=== PATIENT | female | born 1930 | race Caucasian/White ===

== ENCOUNTER 2020-06-07 15:17 | Emergency (ER) | payer OTHER ==
--- OUTSIDE RECORDS SUMMARY | 2020-06-07 15:21 | XMS REPORT | Continuity of Care Document ---
:1930 Author Organization [facility] t Address [address] [place] [address] Care Team Providers Name Role Phone Unavailable Unavailable Unavailable Payers Payer Name Policy Type Policy Number Effective Date Expiration Date S ource Problems This patient has no known problems. Allergies, Adverse Reactions, Alerts Allergy Allergy Status Severity Reaction(s) Onset Inactive Treating Comm ents Source Name Type Date Date Clinician No Known DA Active U [facility] 05-21 [place] [facility] 00:[facility] Medications This patient has no known medications. Procedures This patient has no known procedures. Results Test Description Test Time Test Comments Results Result [facility] e Comments - XR FLUORO FOR 2020-05-22 Patient Name: SPINE INJ 11:12:00 CASSIDY MANCIA Unit No: [id number] EXAMS: CPT CODE: [id number] XR FLUORO FOR SPINE INJ 37863 LUMBAR TRANSFORAMINAL INJECTION REFERRING PHYSICIAN: PREOPERATIVE DIAGNOSIS: Degenerative Lumbar Disc Disease. POSTOPERATIVE DIAGNOSIS: Left lumbar radiculopathy PROCEDURES PERFORMED 1. Fluoroscopically guided needle localization of the left L4, left L5, left S1 spinal nerve/nerves with transforaminal epidural steroid injection/injections. 2. Transforaminal epidurogram/epidurogram s at left L4, left L5, left S1. FINDINGS: Poor filling all. Concordant provocation left L4 hip. Pain relief-100%. ANTIBIOTIC: Cefazolin ESTIMATED BLOOD LOSS: Minimal ANESTHESIA: (TIVA )Total intravenous anesthetic (patient intolerant to sedatives and hypnotics) COMPLICATIONS: None DETAILS OF PROCEDURE: After obtaining stable vital signs, informed consent and IV access, with no known contraindications to proceeding, the patient was taken to the fluoroscopy suite and placed in a prone position with all extremities padded and appropriate monitors placed. A sterile prep and drape was performed over the lumbosacral spine. Using fluoroscopic visualization at each level the insertion site was marked for a paravertebral approach to the foramen. Using standard technique, a 25 gauge needle was advanced to the base of the pedicle. In AP view, final positioning was obtained outside the 6 on the clock position on the pedicle. Then, 1 ml of Isovue-300 contrast was injected to produce the epidurograms. No paresthesias were elicited with needle insertion or injection and there were no signs of intravascular or intrathecal uptake. Then, with 1 ml of 4% lidocaine and 10 mg of triamcinolone was injected incrementally with frequent negative aspirations. There were no signs of intravascular or intrathecal uptake. Each subsequent level was done using the same technique and medications. The patient's vital signs remained stable. The patient was taken to the PACU in good condition. at 1112 Reported and signed by: Britton Lawrence M.D. [facility] NAME[facility] [address] [place] [address] PHYS: Britton Russell MD [place], [place] [address] : 1930 AGE: 89 SEX: F LOC: MarleeDANIEL PHONE #: [phone] EXAM DATE: 05/22/2020 STATUS: [facility] FAX #: [phone] RAD #: D/C DT PAGE 1 Signed Report (CONTINUED) Patient Name: CASSIDY MANCIA Unit No: [id number] EXAMS: CPT CODE: [id number] XR FLUORO FOR SPINE INJ 70766 <Continued> CC: Britton Lawrence MD Technologist: PASQUALE CAI RT(R) Transcribed D/ (1112) Arianna [facility] [place] NAME: CASSIDY MANCIA [address] [place] [address] PHYS: Britton Russell MD [place], [place] [address] : 1930 AGE: 89 SEX: F LOC: [place] PHONE #: [phone] EXAM DATE: 05/22/2020 STATUS: [facility] FAX #: [phone] RAD #: D/C DT PAGE 2 Signed Report Patient Name: CASSIDY MANCIA Unit No: [id number] EXAMS: CPT CODE: [id number] XR FLUORO FOR SPINE INJ [id number] <Continued> Orig Print D/T: S: 05/22/2020 (1116) [facility] [place] NAME: CASSIDY MANCIA [address] PHYS: DOCUD - Doctor,Britton Kirby MD [place], [place] [address] : 1930 AGE: 89 SEX: F LOC: [place] PHONE #: [phone] EXAM DATE: 05/22/2020 STATUS: [facility] FAX #: [phone] RAD #: D/C DT PAGE 3 Signed Report
--- NOTE | 2020-06-07 15:52 | EDPHYS ---
Physician Documentation [facility] Name: Anel Hopkins Age: 89 yrs Sex: Female : 1930 Arrival Date: 06/07/2020 Time: 15:20 Bed 6 Private MD: ED Physician Alpesh Duenas HPI: 06/07 15:46 This 89 yrs old Female presents to ER via Wheelchair with complaints of LLE rn blood clot. 15:46 The patient presents with pain. The complaints affect the left calf. Onset: The rn symptoms/episode began/occurred at an unknown time. Modifying factors: The symptoms are alleviated by elevating leg, the symptoms are aggravated by nothing. Severity of symptoms: At their worst the symptoms were mild, in the emergency department the symptoms have improved. The patient has experienced similar episodes in the past. Reports swelling and pain to left leg for months, had scheduled outpt u/s today, showed DVT, no other complaints, no sob, no chest pain. No hx of dvt/pe. . Historical: - Allergies: 15:25 No Known Allergies; rb1 - Home Meds: 15:25 meloxicam 15 mg oral tab 1 tab once daily [Active]; losartan 25 mg oral tab 1 tab once rb1 daily [Active]; metoprolol tartrate 25 mg Oral tab 1 tab once daily [Active]; atorvastatin oral oral once daily [Active]; pramipexole 0.25 mg oral tab 1 tab daily [Active]; lansoprazole 30 mg oral cpDR 1 cap once daily [Active]; aspirin 81 mg Oral chew 1 tab once daily [Active]; - PMHx: 15:25 high blood pressure; High Cholesterol; rb1 - PSHx: 15:33 Hysterectomy; Cholecystectomy; Appendectomy; iw - Immunization history:: Flu vaccine is not up to date. - Family history:: not pertinent. - Social history:: Smoking status: Patient/guardian denies using. - Hospitalizations: : No recent hospitalization is reported. ROS: 15:46 Constitutional: Negative for fever, chills, and weight loss, Eyes: Negative for injury, rn pain, redness, and discharge, Cardiovascular: Negative for chest pain, palpitations, and edema, Respiratory: Negative for shortness of breath, cough, wheezing, and pleuritic chest pain, Abdomen/GI: Negative for abdominal pain, nausea, vomiting, diarrhea, and constipation, MS/Extremity: + LLE pain and swelling Skin: Negative for injury, rash, and discoloration, Neuro: Negative for headache, weakness, numbness, tingling, and seizure. Exam: 15:46 Constitutional: This is a well developed, well nourished patient who is awake, alert, rn and in no acute distress. Cardiovascular: Regular rate and rhythm. No pulse deficits. Respiratory: No increased work of breathing, no retractions or nasal flaring. Skin: Warm, dry, cap refill 4 sec bilateral feet. MS/ Extremity: Pulses equal. Neurovascular intact. Full, normal range of motion. + mild left calf tenderness, no pitting edema. Vital Signs: 15:25 BP 133 / 90; Pulse 69; Resp 17; Temp 97.7(O); Pulse Ox 96% ; Weight 90.72 kg (R); rb1 Height 5 ft. 2 in. (157.48 cm) (R); Pain 1/10; 15:25 Body Mass Index 36.58 (90.72 kg, 157.48 cm) rb1 15:25 unless someone touches the leg, then the pain 5/10 rb1 MDM: 15:24 Patient medically screened. rn 15:46 Differential diagnosis: DVT. Data reviewed: vital signs, nurses notes, radiologic rn studies, doppler, and as a result, I will discharge patient. Counseling: I had a detailed discussion with the patient and/or guardian regarding: the historical points, exam findings, and any diagnostic results supporting the discharge/admit diagnosis, radiology results, the need for outpatient follow up, to return to the emergency department if symptoms worsen or persist or if there are any questions or concerns that arise at home. Special discussion: I discussed with the patient/guardian in detail that at this point there is no indication for admission to the hospital. It is understood, however, that if the symptoms persist or worsen the patient needs to return immediately for re-evaluation. Based on the history and exam findings, there is no indication for further emergent testing or inpatient evaluation. I discussed with the patient/guardian the need to see the primary care provider for further evaluation of the symptoms. ED course: Uncomplicated DVT LLE, unsure even when began, no signs or symptoms of PE. Will dc home with eliquis and pcp f/u. . Administered Medications: 16:20 Drug: Eliquis 10 mg Route: PO; rb1 16:21 Follow up: Response: Medication administered at discharge. rb1 Disposition: 06/07/20 15:51 Discharged to Home. Impression: Acute embolism and thrombosis of other specified deep vein of left lower extremity. - Condition is Stable. - Discharge Instructions: Deep Vein Thrombosis. - Prescriptions for Eliquis 5 mg Oral tablet - take 1 tablet by ORAL route 2 times per day; 60 tablet. Eliquis 5 mg Oral tablet - take 2 tablet by ORAL route 2 times per day for 7 days Take this prescription for first 7 days, then switch to 2nd prescription of eliquis.; 28 tablet. - Medication Reconciliation Form, Thank You Letter, Antibiotic Education, Prescription Opioid Use form. - Follow up: Private Physician; When: As needed; Reason: Recheck today's complaints, Re-evaluation by your physician. - Problem is new. - Symptoms are unchanged. Signatures: Tamra Massey RN RN iw Alpesh Duenas MD MD rn Barber, Rebecca, RN RN rb1 Corrections: (The following items were deleted from the chart) 16:22 15:51 06/07/2020 15:51 Discharged to Home. Impression: Acute embolism and thrombosis of rb1 other specified deep vein of left lower extremity. Condition is Stable. Forms are Medication Reconciliation Form, Thank You Letter, Antibiotic Education, Prescription Opioid Use. Follow up: Private Physician; When: As needed; Reason: Recheck today's complaints, Re-evaluation by your physician. Problem is new. Symptoms are unchanged. rn
--- NOTE | 2020-06-07 15:52 | ER ---
Nurse's Notes [facility] Name: Anel Hopkins Age: 89 yrs Sex: Female : 1930 Arrival Date: 06/07/2020 Time: 15:20 Bed 6 Private MD: Diagnosis: Acute embolism and thrombosis of other specified deep vein of left lower extremity Presentation: 06/07 15:32 Chief complaint: Patient states: has had left leg swelling for months, had an US of leg iw today, showed a blood clot. Coronavirus screen: At this time, the client does not indicate any symptoms associated with coronavirus-19. Ebola Screen: Patient negative for fever greater than or equal to 101.5 degrees Fahrenheit, and additional compatible Ebola Virus Disease symptoms Patient denies exposure to infectious person. Patient denies travel to an Ebola-affected area in the 21 days before illness onset. No symptoms or risks identified at this time. Initial Sepsis Screen: Does the patient meet any 2 criteria? No. Patient's initial sepsis screen is negative. Does the patient have a suspected source of infection? No. Patient's initial sepsis screen is negative. Risk Assessment: Do you want to hurt yourself or someone else? Patient reports no desire to harm self or others. Onset of symptoms was 2019. 15:32 Method Of Arrival: Wheelchair iw 15:32 Acuity: SHAWANDA 3 iw Historical: - Allergies: 15:25 No Known Allergies; rb1 - Home Meds: 15:25 meloxicam 15 mg oral tab 1 tab once daily [Active]; losartan 25 mg oral tab 1 tab once rb1 daily [Active]; metoprolol tartrate 25 mg Oral tab 1 tab once daily [Active]; atorvastatin oral oral once daily [Active]; pramipexole 0.25 mg oral tab 1 tab daily [Active]; lansoprazole 30 mg oral cpDR 1 cap once daily [Active]; aspirin 81 mg Oral chew 1 tab once daily [Active]; - PMHx: 15:25 high blood pressure; High Cholesterol; rb1 - PSHx: 15:33 Hysterectomy; Cholecystectomy; Appendectomy; iw - Immunization history:: Flu vaccine is not up to date. - Family history:: not pertinent. - Social history:: Smoking status: Patient/guardian denies using. - Hospitalizations: : No recent hospitalization is reported. Screenin:25 Abuse screen: Denies threats or abuse. Nutritional screening: No deficits noted. rb1 Tuberculosis screening: No symptoms or risk factors identified. Fall Risk Fall in past 12 months (25 points). Secondary diagnosis (15 points) impaired mobility, No IV (0 pts). Ambulatory Aid- Crutches/Cane/Walker (15 pts). Gait- Impaired (20 pts.). Mental Status- Oriented to own ability (0 pts). Total Brannon Fall Scale indicates High Risk Score (45 or more points). Fall prevention measures have been instituted. Side Rails Up X 2 Placed Close to Nursing Station 1:1 Attendant Assigned Frequent Obs/Assessments Occuring Family Present and informed to notify staff if the need to leave the bedside As available patient and family educated on Fall Prevention Program and Strategies. Assessment: 15:25 General: Appears in no apparent distress. comfortable, Behavior is calm, cooperative. rb1 Pain: Complains of pain in left leg Pain began Left leg has been swelling for months. Pain intensifies when the leg is touched. Neuro: Level of Consciousness is awake, alert, obeys commands, Oriented to person, place, time, situation. Cardiovascular: Capillary refill is > 3 seconds in bilateral feet. blue/purple discoloration noted to the both feet and toes, time of onset is unknown. Respiratory: Airway is patent Respiratory effort is even, unlabored, Respiratory pattern is regular, symmetrical, Denies shortness of breath. GI: Reports soft stool. Musculoskeletal: Range of motion: intact in all extremities, ambulates with walker. 16:21 Reassessment: Patient appears in no apparent distress at this time. No changes from rb1 previously documented assessment. Vital Signs: 15:25 BP 133 / 90; Pulse 69; Resp 17; Temp 97.7(O); Pulse Ox 96% ; Weight 90.72 kg (R); rb1 Height 5 ft. 2 in. (157.48 cm) (R); Pain 1/10; 15:25 Body Mass Index 36.58 (90.72 kg, 157.48 cm) rb1 15:25 unless someone touches the leg, then the pain 5/10 rb1 ED Course: 15:20 Patient arrived in ED. iw 15:21 Elba Damon, MATT is Primary Nurse. rb1 15:24 Alpesh Duenas MD is Attending Physician. rn 15:25 Patient has correct armband on for positive identification. Bed in low position. Call rb1 light in reach. Side rails up X 1. Pulse ox on. NIBP on. Warm blanket given. 15:25 Arm band placed on right wrist. rb1 15:33 Triage completed. iw 16:21 No provider procedures requiring assistance completed. Patient did not have IV access rb1 during this emergency room visit. Administered Medications: 16:20 Drug: Eliquis 10 mg Route: PO; rb1 16:21 Follow up: Response: Medication administered at discharge. rb1 Outcome: 15:51 Discharge ordered by MD. rn 16:21 Discharged to home via wheelchair, with family. rb1 16:21 Condition: stable 16:21 Discharge instructions given to patient, Instructed on discharge instructions, follow up and referral plans. medication usage, Demonstrated understanding of instructions, follow-up care, medications, Prescriptions given X 2. 16:22 Patient left the ED. rb1 Signatures: Tamra Massey RN RN iw Alpesh Duenas MD MD rn Barber, Rebecca, RN RN rb1
[2020-06-07] MEDS ORDERED: APIXABAN 5 MG TABLET PO ONE (16:00)
[2020-06-07 16:26] VITALS: BP 133/90; TEMP 97.7; O2SAT 96
== END 2020-06-07 16:22 | disposition home or self-care (01) ==
LOC: ER 15:17
DX: I82.492 Acute embolism and thrombosis of other specified deep vein of left lower extremity (principal); I10 Essential (primary) hypertension; E78.00 Pure hypercholesterolemia, unspecified; Z79.82 Long term (current) use of aspirin
CPT/HCPCS: 99283

== ENCOUNTER 2020-09-29 | Emergency (ER) | payer OTHER ==
--- OUTSIDE RECORDS SUMMARY | 2020-09-29 16:14 | XMS REPORT | Continuity of Care Document ---
:1930 Author Organization [facility] t Address [address] [place] [address] Care Team Providers Name Role Phone Unavailable Unavailable Unavailable Payers Payer Name Policy Type Policy Number Effective Date Expiration Date S ource Problems This patient has no known problems. Allergies, Adverse Reactions, Alerts Allergy Allergy Status Severity Reaction(s) Onset Inactive Treating Comm ents Source Name Type Date Date Clinician No Known DA Active U [facility] Allergie 05-21 [place] [facility] 00:00: Orthope 00 dic Hospita l Medications This patient has no known medications. Procedures This patient has no known procedures. Results Test Description Test Time Test Comments Results Result [facility] e Comments - XR FLUORO FOR 2020-05-22 Patient Name: SPINE INJ 11:12:00 CASSIDY MANCIA Unit No: [id number] EXAMS: CPT CODE: [id number] XR FLUORO FOR SPINE INJ 18214 LUMBAR TRANSFORAMINAL INJECTION REFERRING PHYSICIAN: PREOPERATIVE DIAGNOSIS: [...] Reported and signed by: Britton Lawrence M.D. [facility] NAME[facility] [address] [place] [address] PHYS: Britton Russell MD [place], [place] [address] : 1930 AGE: 89 SEX: F LOC: MarleeDANIEL PHONE #: [phone] EXAM DATE: 05/22/2020 [place] [facility] [place] #: [phone] RAD #: D/C DT PAGE 1 Signed Report (CONTINUED) Patient Name: CASSIDY MANCIA Unit No: [id number] EXAMS: CPT CODE: [id number] XR FLUORO FOR SPINE INJ 10415 <Continued> CC: Britton Lawrence MD Technologist: PASQUALE CAI RT(R) Transcribed D/ (1112) Arianna [facility] NAME: CASSIDY MANCIA [address] [place] [address] PHYS: Britton Russell MD [place], [place] [address] : 1930 AGE: 89 SEX: F LOC: [place] PHONE #: [phone] EXAM DATE: 05/22/2020 [place]US: [facility] [place] #: [phone] RAD #: D/C DT PAGE 2 Signed Report Patient Name: CASSIDY MANCIA Unit No: [id number] EXAMS: CPT CODE: [id number] XR FLUORO FOR SPINE INJ 32882 <Continued> Orig Print D/T: S: 05/22/2020 (1116) [facility] NAME: CASSIDY MANCIA [address] [facility] PHYS: DOCUD - Doctor,Britton Kirby MD [place], [place] [address] : 1930 AGE: 89 SEX: F LOC: [place] PHONE #: [phone] EXAM DATE: 05/22/2020 [place]US: [facility] [place] #: [phone] RAD #: D/C DT PAGE 3 Signed Report
--- NOTE | 2020-09-29 19:05 | ER ---
Nurse's Notes [facility] Name: Anel Hopkins Age: 89 yrs Sex: Female : 1930 Arrival Date: 09/29/2020 Time: 16:14 Bed Waiting Private MD: Diagnosis: Presentation: 09/29 16:24 Chief complaint: Chief complaint: Patient states: Pt reports she has somebody in her ss house that has COVID, and last night she started to not feel well. Pt reports headaches and cough. Coronavirus screen: cough unrelated to allergies, headache, Client presents with at least one sign or symptom that may indicate coronavirus-19. Standard/surgical mask placed on the client. Ebola Screen: Patient denies exposure to infectious person. Patient denies travel to an Ebola-affected area in the 21 days before illness onset. Initial Sepsis Screen: Does the patient meet any 2 criteria? No. Patient's initial sepsis screen is negative. Does the patient have a suspected source of infection? No. Patient's initial sepsis screen is negative. Risk Assessment: Do you want to hurt yourself or someone else? Patient reports no desire to harm self or others. Onset of symptoms was September 28, 2020. 16:24 Method Of Arrival: Wheelchair 16:24 Acuity: SHAWANDA 3 Historical: - Allergies: 16:27 No Known Allergies; ss - PMHx: 16:27 High Blood Pressure; High Cholesterol; ss - PSHx: 16:27 Hysterectomy; Cholecystectomy; Appendectomy; ss - Immunization history:: Adult Immunizations up to date. - Social history:: Smoking status: Patient denies any tobacco usage or history of. Assessment: 19:03 Reassessment: Notified by Registration of patient leaving now. lp1 Vital Signs: 16:24 BP 168 / 80; Pulse 76; Resp 18; Temp 98.4(TE); Pulse Ox 96% on R/A; Weight 90.72 kg; ss Height 5 ft. 2 in. (157.48 cm); Pain 5/10; 16:24 Body Mass Index 36.58 (90.72 kg, 157.48 cm) ED Course: 16:14 Patient arrived in ED. rg4 16:27 Triage completed. ss 16:27 Arm band placed on right wrist. ss Administered Medications: No medications were administered Outcome: 19:03 Eloped from waiting room, before seeing physician Time discovered patient gone: September at 19:03 19:04 Patient left the ED. lp1 Signatures: Fatou Siu RN RN ss Deloris Chua RN RN lp1 Nena Erickson rg4
== END 2020-09-29 19:04 | disposition left against medical advice (07) ==
DX: Z53.21 Procedure and treatment not carried out due to patient leaving prior to being seen by health care provider (principal)
CPT/HCPCS: 99281

== ENCOUNTER 2020-10-05 11:54 | Emergency (ER) | payer OTHER ==
--- OUTSIDE RECORDS SUMMARY | 2020-10-05 11:56 | XMS REPORT | Summary of Care ---
:1930 Author Organization [facility] Address [address] [place] [address] Care Team Providers Name Role Phone Robert Hopkins Primary Care Provider Reason for Visit Reason Comments LAB Exposure Encounter Details Date Type Department Care Team Description 10/02/2020 Laboratory Only [facility] Family Leo Lakhani, LOGISTICIAN [address] [place] [address] Exposure to Medicine - [facility], Adc Fam Pob I SARS-associated [address] [place] [address] coronaviru s ([address] Dx) [place] [address] Allergies Not on Filedocumented as of this encounter (statuses as of 10/02/2020) Medications Not on filedocumented as of this encounter (statuses as of 10/02/2020) Active Problems Not on filedocumented as of this encounter (statuses as of 10/02/2020) Social History Tobacco Use Types Packs/Day Years Used Date Never Assessed Sex Assigned at Date Recorded Not on file COVID-19 Exposure Response Date Recorded In the last month, have you been in contact with Yes 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 documented as of this encounter Last Filed Vital Signs Not on filedocumented in this encounter Nursing Notes Florence Baird MA - 10/02/2020 10:40 AM [facility] Hopkins is a 89 year old female here for COVID Screening with a Nasopharyngeal Swab All droplet and contact precautions taken with appropriate PPE worn while interacting with patient. ? Goggles ? N95 Mask ? Gloves ? Gown RR 16 Ox 96% Patient educated on plan of care for visit, swabbing technique, risks and benefits of test and length of time to receive results. Verbal consent obtained to perform test. CDC Fact Sheet for Patients nCoV Diagnostic Panel dated 12/11/2019 and Factsheet What to Do if Sick with COVID 19 11/21/19 provided. Bilate nares swabbed during COVID19 nasopharyngeal swab. Patient swabbed per appropriate nasopharyngeal technique, and patient tolerated well. Patient was discharged from the testing clinic in stable condition. FLORENCE BAIRD MA 10/02/2020 10:59 AM ER ROOM ATTENDANT documented in this encounter Plan of Treatment Name Type Priority Associated Diagnoses Order S sujata COVID-19 (MOLECULAR LAB Routine Exposure to Expected : 10/02/2020, TESTING SARS-associated Expires: 022 NUCLEIC ACID coronavirus AMPLIFICATION) Health Maintenance Due Date Last Done Comments Depression Screening 1944 DTaP,Tdap,and Td Vaccines (1 - Tdap) 1951 Zoster Recombinant Vaccine (SHINGRIX) (1 of 2) 1982 Medicare Wellness Visit 1997 Osteoporosis Screening 1997 PNEUMOCOCCAL VACCINES 65+ (1 of 1 - PPSV23) 1997 INFLUENZA VACCINE (#1) 2020 documented as of this encounter Results Not on filedocumented in this encounter Visit Diagnoses Diagnosis Exposure to SARS-associated coronavirus - Primary documented in this encounter Additional Health Concerns Infection Onset Date Last Indicated Resolved Time COVID-19 Rule Out 10/02/2020 10/02/2020 documented as of this encounter Insurance Payer Benefit Plan Subscriber ID Effective Phone Address Typ e / Group Dates AETNA - AETNA [id number] 2020-Prese [address]OX Medic are Adv MANAGED MEDICARE ADV nt [id number] [place] [address] documented as of this encounter
--- OUTSIDE RECORDS SUMMARY | 2020-10-05 11:56 | XMS REPORT | Summary of Care ---
:1930 Author Organization [facility] Address [address] [place] [address] Care Team Providers Name Role Phone Robert Hopkins Primary Care Provider Encounter Details Date Type Department Care Team Description 10/02/2020 Letter (Out) [facility] Diligent Board Member Services Message s Doctor Unassigned, No 301 [facility] [place] [address] [address] [facility] [phone] [place] [address] Allergies Not on Filedocumented as of this [...] in contact with Yes 10/02/2020 10:[address] JUSTICE someone who was confirmed or suspected to have Coronavirus / COVID-19? documented as of this encounter Last Filed Vital Signs Not on filedocumented in this encounter Plan of Treatment Health Maintenance Due Date Last Done Comments Depression Screening 1944 DTaP,Tdap,and Td Vaccines (1 - Tdap) 1951 Zoster Recombinant Vaccine (SHINGRIX) (1 of 2) 1982 Medicare Wellness Visit 1997 Osteoporosis Screening 1997 PNEUMOCOCCAL VACCINES 65+ (1 of 1 - PPSV23) 1997 INFLUENZA VACCINE (#1) 2020 documented as of this encounter Results Not on filedocumented in this encounter Additional Health Concerns Infection Onset Date Last Indicated Resolved Time COVID-19 Rule Out 10/02/2020 10/02/2020 documented as of this encounter Insurance Payer Benefit Plan Subscriber ID Effective Phone Address Typ e / Group Dates AETNA - AETNA [id number] 2020-Pres [address] Med[address] re Adv MANAGED MEDICARE ADV ent [id number] [place] [address] MEDICARE MEDICARE PART [id number] 2020-Pres [phone] Medicare A & B ent [id number] [place] [id number] documented as of this encounter
--- OUTSIDE RECORDS SUMMARY | 2020-10-05 11:56 | XMS REPORT | Continuity of Care Document ---
:1930 Author Organization [facility] t Address [address] [place] [address] Care Team Providers Name Role Phone Lab, Fam Pob I Attending Clinician Unavailable Doctor Unassigned, Name Attending Clinician Unavailable Payers Payer Name Policy Type Policy Number Effective Date Expiration Date S ource Problems This patient has no known problems. Allergies, Adverse Reactions, Alerts Allergy Allergy Status Severity Reaction(s) Onset Inactive Treating Comm ents Source Name Type Date Date Clinician No Known DA Active [facility]ie 05-21 [place] [facility] 00[facility]: [facility] Medications This patient has no known medications. Procedures This patient has no known procedures. Encounters Start End Encounter Admission Attending Care Care Encounter Source Date/Time Date/Time Type Type Clinicians Facility Department ID 2020-10-02 2020-10-02 Laboratory Lab, [facility] [id number] 10:51:34 11:11:34 Only Fam Pob I Health [id number] [place] [id number] William [id number] [address]al [address] 2020-10-02 2020-10-02 Letter Doctor CORTES [id number] 00:00:00 00:00:00 (Out) UnassignedDEWAYNE [id number] [facility] [id number] Results Test Description Test Time Test Comments Results Result [facility] e Comments - XR FLUORO FOR 2020-05-22 Patient Name: SPINE INJ 11:12:00 CASSIDY MANCIA Unit No: [id number] EXAMS: CPT CODE: [id number] XR FLUORO FOR SPINE INJ 60068 LUMBAR TRANSFORAMINAL INJECTION REFERRING PHYSICIAN: PREOPERATIVE DIAGNOSIS: [...] Reported and signed by: Britton Lawrence M.D. [facility] NAME: CASSIDY MANCIA [address] [facility] PHYS: Britton Russell MD [place] [address] : 1930 AGE: 89 SEX: F LOC: [place] PHONE #: [phone] EXAM DATE: 05/22/2020 STATUS: [facility] FAX #: [phone] RAD #: D/C DT PAGE 1 Signed Report (CONTINUED) Patient Name: CASSIDY MANCIA Unit No: [id number] EXAMS: CPT CODE: [id number] XR FLUORO FOR SPINE INJ 49908 <Continued> CC: Britton Lawrence MD Technologist: PASQUALE CAI RT(R) Transcribed D/ (1112) Arianna [facility] NAME: CASSIDY MANCIA [address] [place] [address] PHYS: Britton Russell MD [place] [address] : 1930 AGE: 89 SEX: F LOC: [place] PHONE #: [phone] EXAM DATE: 05/22/2020 STATUS: [facility] FAX #: [phone] RAD #: D/C DT PAGE 2 Signed Report Patient Name: CASSIDY MANCIA Unit No: [id number] EXAMS: CPT CODE: [id number] XR FLUORO FOR SPINE INJ 23211 <Continued> Orig Print D/T: S: 05/22/2020 (1116) [facility] [address] [place] [address] PHYS: Britton Russell MD [place] [address] : 1930 AGE: 89 SEX: F LOC: [place] PHONE #: [phone] EXAM DATE: 05/22/2020 STATUS: [facility] FAX #: [phone] RAD #: D/C DT PAGE 3 Signed Report
[2020-10-05] MEDS ORDERED: dexAMETHasone 10 MG/ML VIAL ONE (12:50)
--- NOTE | 2020-10-05 13:25 | RAD REPORT ---
EXAM DESCRIPTION: RAD - Chest Single View - 10/05/2020 1:03 pm CLINICAL HISTORY: DYSPNEA Chest pain. COMPARISON: CHEST SINGLE VIEW dated 12/19/2015; CHEST SINGLE VIEW dated 12/18/2015; CHEST PA AND LAT 2 VIEW dated 10/19/2009; CHEST PA AND LAT 2 VIEW dated 06/20/2002 FINDINGS: Portable technique limits examination quality. The lungs are mildly underinflated but grossly clear. The heart is upper limit of normal in size. No displaced fractures. IMPRESSION: No acute intrathoracic process suspected.
[2020-10-05 14:15] LABS: Absolute Lymphocytes (CBC) 1.1 K/uL (0.7-4.9); Basophils % 0.3 % (0-1.3); Hematocrit 44.6 % (36.0-45.0); Lymphocytes % 23.8 % (15.3-44.8); MPV 9.7 fL (7.6-11.3); RBC Red Blood Cell Count 4.88 M/uL (3.86-4.86)
[2020-10-05 14:17] LABS: ALT/SGPT 44 U/L (12-78); Albumin 3.1 g/dL (3.4-5.0); Alkaline Phosphatase 206 U/L (45-117); BUN Blood Urea Nitrogen 39 mg/dL (7-18); Bicarbonate 25 mmol/L (21-32); Bilirubin Direct < 0.1 mg/dL (0-0.2); Bilirubin Total 0.3 mg/dL (0.2-1.0); Glucose Level 72 mg/dL (74-106); Potassium 4.1 mmol/L (3.5-5.1); Protein, Total 7.3 g/dL (6.4-8.2); Sodium Level 140 mmol/L (136-145); Troponin (Emerg Dept Use Only) < 0.02 ng/mL (0.0-0.045)
[2020-10-05 14:18] LABS: AST/SGOT 45 U/L (15-37)
[2020-10-05 15:32] LABS: Protime INR 1.23
[2020-10-05 15:43] LABS: Urine Bacteria LOADED /HPF (<20); Urine RBC <5 /HPF (NONE SEEN)
[2020-10-05 15:45] LABS: Urine Blood NEGATIVE (NEG); Urine Glucose NEGATIVE (NEG); Urine Protein TRACE (NEG); Urine Specific Gravity 1.025 (1.005-1.030); Urine pH 6.5 (5.0-7.0)
--- NOTE | 2020-10-05 16:03 | ER ---
Nurse's Notes [facility] Name: Anel Hopkins Age: 89 yrs Sex: Female : 1930 Arrival Date: 10/05/2020 Time: 12:08 Bed 3 Private MD: Diagnosis: Urinary tract infection, site not specified;SARS-associated coronavirus as the cause of diseases classified elsewhere Presentation: 10/05 12:09 Chief complaint: EMS states: Pt tested Positive for Covid-19 on Thursday10/01/2020. On ca1 and off chills. Increased SOB and tachypnea, SP02 at 89% RA. Coronavirus screen: Client reports previous positive COVID test result. Date of collection: October 01, 2020 Staff notified of need for isolation. Ebola Screen: Patient negative for fever greater than or equal to 101.5 degrees Fahrenheit, and additional compatible Ebola Virus Disease symptoms Patient denies exposure to infectious person. Patient denies travel to an Ebola-affected area in the 21 days before illness onset. No symptoms or risks identified at this time. Initial Sepsis Screen: Does the patient meet any 2 criteria? No. Patient's initial sepsis screen is negative. Does the patient have a suspected source of infection? No. Patient's initial sepsis screen is negative. Risk Assessment: Do you want to hurt yourself or someone else? Patient reports no desire to harm self or others. Onset of symptoms was October 05, 2020. 12:09 Method Of Arrival: EMS: [facility] ca1 12:09 Acuity: SHAWANDA 3 ca1 Historical: - Allergies: 12:16 No Known Allergies; ca1 - Home Meds: 12:16 Eliquis oral oral [Active]; losartan-hydrochlorothiazide oral oral [Active]; ca1 - PMHx: 12:16 High Blood Pressure; High Cholesterol; ca1 - PSHx: 12:16 Hysterectomy; Cholecystectomy; Appendectomy; ca1 - Immunization history:: Adult Immunizations up to date, Pneumococcal vaccine is up to date, Flu vaccine is up to date. - Social history:: Smoking status: Patient denies any tobacco usage or history of. Screenin:16 Abuse screen: Denies threats or abuse. Denies injuries from another. Nutritional ca1 screening: No deficits noted. Tuberculosis screening: No symptoms or risk factors identified. Fall Risk IV access (20 points). Assessment: 12:16 General: Appears in no apparent distress. comfortable, Behavior is calm, cooperative, ca1 appropriate for age. General: Reports chills for >3 days, feeling ill for > 3 days. Pain: Denies pain. Neuro: Level of Consciousness is awake, alert, obeys commands, Oriented to person, place, time, situation. Cardiovascular: Heart tones S1 S2 present Capillary refill < 3 seconds Patient's skin is warm and dry. Rhythm is atrial flutter on 12L EKG. Respiratory: Reports shortness of breath at rest cough that is Airway is patent Respiratory effort is even, unlabored, Respiratory pattern is regular, symmetrical, Breath sounds are clear bilaterally. GI: Abdomen is round non-distended, Bowel sounds present X 4 quads. Abd is soft and non tender X 4 quads. : No signs and/or symptoms were reported regarding the genitourinary system. EENT: No signs and/or symptoms were reported regarding the EENT system. Derm: Skin is intact, is healthy with good turgor, Skin is pink, warm \T\ dry. Musculoskeletal: Circulation, motion, and sensation intact. Capillary refill < 3 seconds. 13:11 Reassessment: Patient appears in no apparent distress at this time. Patient and/or ca1 family updated on plan of care and expected duration. Pain level reassessed. Patient is alert, oriented x 3, equal unlabored respirations, skin warm/dry/pink. 13:51 Reassessment: Patient appears in no apparent distress at this time. Patient and/or ca1 family updated on plan of care and expected duration. Pain level reassessed. Patient is alert, oriented x 3, equal unlabored respirations, skin warm/dry/pink. Cardiovascular: Rhythm is sinus rhythm on Monitor. 14:54 Reassessment: Patient appears in no apparent distress at this time. Patient and/or ca1 family updated on plan of care and expected duration. Pain level reassessed. Patient is alert, oriented x 3, equal unlabored respirations, skin warm/dry/pink. 15:45 Reassessment: Dr. Marie at bedside at this time. ca1 15:53 Reassessment: Patient appears in no apparent distress at this time. Patient and/or ca1 family updated on plan of care and expected duration. Pain level reassessed. Patient is alert, oriented x 3, equal unlabored respirations, skin warm/dry/pink. 16:55 Reassessment: Patient appears in no apparent distress at this time. Patient and/or ca1 family updated on plan of care and expected duration. Pain level reassessed. Patient is alert, oriented x 3, equal unlabored respirations, skin warm/dry/pink. 17:03 Reassessment: Pt wheeled to restroom. Ambulated around bed. Pt tolerated well. O2 sat ca1 remained at 93% at 2LPM NC. Pt denies SOB at this time. 17:49 Reassessment: Patient appears in no apparent distress at this time. Patient is alert, ca1 oriented x 3, equal unlabored respirations, skin warm/dry/pink. Awaiting continuous pickling line pickler from daughter. Vital Signs: 12:09 BP 131 / 71; Pulse 80; Resp 17 S; Temp 97.2(TE); Pulse Ox 98% on R/A; Weight 90.72 kg ca1 (R); Height 5 ft. 2 in. (157.48 cm) (R); 13:05 BP 110 / 78; Pulse 81; Resp 23; Pulse Ox 97% on 2 lpm NC; ca1 13:51 BP 119 / 48; Pulse 71; Resp 15 S; Pulse Ox 97% on 2 lpm NC; ca1 14:55 BP 122 / 67; Pulse 69; Resp 18 S; Pulse Ox 98% on 2 lpm NC; ca1 15:58 BP 154 / 68; Pulse 71; Resp 16 S; Pulse Ox 98% on R/A; ca1 17:03 BP 132 / 85; Pulse 89; Resp 18 S; Pulse Ox 96% on 2 lpm NC; ca1 12:09 Body Mass Index 36.58 (90.72 kg, 157.48 cm) ca1 ED Course: 12:08 Patient arrived in ED. ca1 12:14 Triage completed. ca1 12:15 Ford Maza PA is PHCP. jr8 12:15 Alpesh Duenas MD is Attending Physician. jr8 12:16 Arm band placed on right wrist. ca1 12:16 Patient has correct armband on for positive identification. Placed in gown. Bed in low ca1 position. Call light in reach. Side rails up X2. secured entrance monitor on. Pulse ox on. NIBP on. Warm blanket given. 12:18 Mariaelena Farah, RN is Primary Nurse. ca1 12:37 No provider procedures requiring assistance completed. Inserted saline lock: 22 gauge ca1 in left antecubital area, using aseptic technique. Blood collected. 12:37 Initial lab(s) drawn, by me, sent to lab. First set of blood cultures drawn. ca1 12:41 Second set of blood cultures drawn by me. ca1 12:55 EKG done, by ED staff. ca1 13:04 CXR XRAY In Process Unspecified. EDMS 14:53 Ptt, Activated Sent. ca1 14:53 PT-INR Sent. ca1 15:11 Straight cath inserted, using sterile technique, 18 Fr. Specimen obtained. Returned ca1 cloudy urine. Patient tolerated well. 17:55 IV discontinued, intact, bleeding controlled, No redness/swelling at site. Pressure ca1 dressing applied. Administered Medications: 12:42 Drug: Decadron - Dexamethasone 10 mg Route: IVP; Site: left antecubital; ca1 15:54 Follow up: Response: No adverse reaction ca1 16:03 Drug: Rocephin 1 grams Route: IV; Rate: calculated rate; Site: left antecubital; ca1 16:07 Drug: NS 0.9% 500 ml Route: IV; Rate: bolus; Site: left antecubital; ca1 Outcome: 16:02 Discharge ordered by MD. rene 17:55 Discharged to home via wheelchair, with family. ca1 17:55 Condition: stable 17:55 Discharge instructions given to patient, family, Instructed on discharge instructions, follow up and referral plans. medication usage, Demonstrated understanding of instructions, follow-up care, medications, Prescriptions given X 2. 17:55 Patient left the ED. ca1 Addendum: 10/11/2020 09:13 Addendum: Culture Results: Positive urine culture. No further action required. Bacteria i w sensitive to prescribed antibiotic. Signatures: Dispatcher [employer] EDMS Tamra Massey RN RN iw Roszak, Josh, PA PA jr8 Mariaelena Farah RN RN ca1 Corrections: (The following items were deleted from the chart) 10/05 13:12 12:16 Cardiovascular: Heart tones S1 S2 present Capillary refill < 3 seconds Patient's ca1 skin is warm and dry. Rhythm is sinus rhythm ca1 13:52 12:16 Cardiovascular: Heart tones S1 S2 present Capillary refill < 3 seconds Patient's ca1 skin is warm and dry. Rhythm is atrial flutter ca1 13:54 13:51 BP 119 / 48; Pulse 71bpm; Resp 15bpm; Spontaneous; Pulse Ox 97% RA; ca1 ca1 17:35 17:03 Reassessment: Pt wheeled to restroom. Ambulated around bed. Pt tolerated well. O2 ca1 sat remained at 93% at 2LPM NC. Pt denies SOB at this time.+ ca1
--- NOTE | 2020-10-05 16:03 | EDPHYS ---
Physician Documentation [facility] Name: Anel Hopkins Age: 89 yrs Sex: Female : 1930 Arrival Date: 10/05/2020 Time: 12:08 Bed 3 Private MD: ED Physician Alpesh Duenas HPI: 10/05 15:56 This 89 yrs old Female presents to ER via EMS with complaints of Shortness Of jr8 Breath. 15:56 The patient has shortness of breath at rest. Onset: The symptoms/episode began/occurred jr8 gradually, 3 day(s) ago. Duration: The symptoms are continuous. The patient's shortness of breath is aggravated by light activity. Associated signs and symptoms: Pertinent positives: fatigue. Severity of symptoms: At their worst the symptoms were mild in the emergency department the symptoms are unchanged. The patient has not experienced similar symptoms in the past. The patient has not recently seen a physician. Patient diagnosed with covid and has been having increased shortness of breath. Was having to utilize husbands home oxygen that he had. Family noted that her oxygen saturation had been dropping into the 80s at home without oxygen. Patient had been more fatigued as well. EMS called at that time for ED to further evaluate her . Historical: - Allergies: 12:16 No Known Allergies; ca1 - Home Meds: 12:16 Eliquis oral oral [Active]; losartan-hydrochlorothiazide oral oral [Active]; ca1 - PMHx: 12:16 High Blood Pressure; High Cholesterol; ca1 - PSHx: 12:16 Hysterectomy; Cholecystectomy; Appendectomy; ca1 - Immunization history:: Adult Immunizations up to date, Pneumococcal vaccine is up to date, Flu vaccine is up to date. - Social history:: Smoking status: Patient denies any tobacco usage or history of. ROS: 16:00 Eyes: Negative for injury, pain, redness, and discharge, ENT: Negative for injury, jr8 pain, and discharge, Neck: Negative for injury, pain, and swelling, Cardiovascular: Negative for chest pain, palpitations, and edema, Abdomen/GI: Negative for abdominal pain, nausea, vomiting, diarrhea, and constipation, Back: Negative for injury and pain, MS/Extremity: Negative for injury and deformity, Skin: Negative for injury, rash, and discoloration, Neuro: Negative for headache, weakness, numbness, tingling, and seizure. 16:00 Constitutional: Positive for fatigue. 16:00 Respiratory: Positive for dyspnea on exertion, shortness of breath. Exam: 16:00 Eyes: Pupils equal round and reactive to light, extra-ocular motions intact. Lids and jr8 lashes normal. Conjunctiva and sclera are non-icteric and not injected. Cornea within normal limits. Periorbital areas with no swelling, redness, or edema. ENT: Nares patent. No nasal discharge, no septal abnormalities noted. Tympanic membranes are normal and external auditory canals are clear. Oropharynx with no redness, swelling, or masses, exudates, or evidence of obstruction, uvula midline. Mucous membranes moist. Neck: Trachea midline, no thyromegaly or masses palpated, and no cervical lymphadenopathy. Supple, full range of motion without nuchal rigidity, or vertebral point tenderness. No Meningismus. Cardiovascular: Regular rate and rhythm with a normal S1 and S2. No gallops, murmurs, or rubs. Normal PMI, no JVD. No pulse deficits. Respiratory: Lungs have equal breath sounds bilaterally, clear to auscultation and percussion. No rales, rhonchi or wheezes noted. No increased work of breathing, no retractions or nasal flaring. Abdomen/GI: Soft, non-tender, with normal bowel sounds. No distension or tympany. No guarding or rebound. No evidence of tenderness throughout. Back: No spinal tenderness. No costovertebral tenderness. Full range of motion. Skin: Warm, dry with normal turgor. Normal color with no rashes, no lesions, and no evidence of cellulitis. MS/ Extremity: Pulses equal, no cyanosis. Neurovascular intact. Full, normal range of motion. Neuro: Awake and alert, GCS 15, oriented to person, place, time, and situation. Cranial nerves II-XII grossly intact. Motor strength 5/5 in all extremities. Sensory grossly intact. Vital Signs: 12:09 BP 131 / 71; Pulse 80; Resp 17 S; Temp 97.2(TE); Pulse Ox 98% on R/A; Weight 90.72 kg ca1 (R); Height 5 ft. 2 in. (157.48 cm) (R); 13:05 BP 110 / 78; Pulse 81; Resp 23; Pulse Ox 97% on 2 lpm NC; ca1 13:51 BP 119 / 48; Pulse 71; Resp 15 S; Pulse Ox 97% on 2 lpm NC; ca1 14:55 BP 122 / 67; Pulse 69; Resp 18 S; Pulse Ox 98% on 2 lpm NC; ca1 15:58 BP 154 / 68; Pulse 71; Resp 16 S; Pulse Ox 98% on R/A; ca1 17:03 BP 132 / 85; Pulse 89; Resp 18 S; Pulse Ox 96% on 2 lpm NC; ca1 12:09 Body Mass Index 36.58 (90.72 kg, 157.48 cm) ca1 MDM: 12:15 Patient medically screened. jr8 15:25 Data reviewed: vital signs, nurses notes, lab test result(s), EKG, radiologic studies, jr8 plain films. Data interpreted: Pulse oximetry: on 2L(s) per nasal canula, is 98 %. Interpretation: acceptable. Counseling: I had a detailed discussion with the patient and/or guardian regarding: the historical points, exam findings, and any diagnostic results supporting the discharge/admit diagnosis, lab results, radiology results, the need for outpatient follow up, a family practitioner, to return to the emergency department if symptoms worsen or persist or if there are any questions or concerns that arise at home. 16:00 ED course: Discussed case with Dr. Hopkins who is patients son along with Dr. Marie. jr8 Patient ultimately has oxygen at home and can monitor her levels at home. Daughter who does not have covid can help take care of her. Patient on supplemental oxygen here is doing very well. VS stable. Will continue steroids and Abx for UTI at home. After both Dr. Marei and I talked to Dr. Hopkins he agreed with plan knowing that patient could come back if worse at any point in time . 10/05 12:16 Order name: Blood Culture Adult (2) 8 10/05 12:16 Order name: BMP; Complete Time: 14:49 10/05 12:16 Order name: C-Reactive Protein; Complete Time: 14:49 10/05 12:16 Order name: CBC with Diff; Complete Time: 14:49 10/05 12:16 Order name: Ferritin; Complete Time: 14:49 10/05 12:16 Order name: Lactate; Complete Time: 14:49 10/05 12:16 Order name: LFT's; Complete Time: 14:49 10/05 12:16 Order name: Procalcitonin; Complete Time: 14:58 10/05 12:16 Order name: PT-INR; Complete Time: 15:45 10/05 12:16 Order name: Ptt, Activated; Complete Time: 15:45 10/05 12:16 Order name: Troponin (emerg Dept Use Only); Complete Time: 14:49 10/05 12:16 Order name: Urine Microscopic Only; Complete Time: 15:45 10/05 15:22 Order name: Urine Dipstick--Ancillary (enter results); Complete Time: 15:46 eb 10/05 15:44 Order name: Urine Culture EDNC 10/05 12:16 Order name: CXR XRAY; Complete Time: 14:49 10/05 12:16 Order name: EKG; Complete Time: 12:18 10/05 12:16 Order name: Cardiac monitoring; Complete Time: 12:47 10/05 12:16 Order name: Droplet/Contact Precautions; Complete Time: 12:48 10/05 12:16 Order name: EKG - Nurse/Tech; Complete Time: 12:48 10/05 12:16 Order name: IV Start; Complete Time: 12:48 10/05 12:16 Order name: Labs collected and sent; Complete Time: 12:48 10/05 12:16 Order name: O2 Per Protocol; Complete Time: 12:48 10/05 12:16 Order name: O2 Sat Monitoring; Complete Time: 12:48 10/05 12:16 Order name: Urine Dipstick-Ancillary (obtain specimen); Complete Time: 15:16 10/05 12:54 Order name: Labs - recollect needed; Complete Time: 13:35 ss Administered Medications: 12:42 Drug: Decadron - Dexamethasone 10 mg Route: IVP; Site: left antecubital; ca1 15:54 Follow up: Response: No adverse reaction ca1 16:03 Drug: Rocephin 1 grams Route: IV; Rate: calculated rate; Site: left antecubital; ca1 16:07 Drug: NS 0.9% 500 ml Route: IV; Rate: bolus; Site: left antecubital; ca1 Disposition: 18:37 Co-signature as Attending Physician, Alpesh Duenas MD. rn Disposition: 10/05/20 16:02 Discharged to Home. Impression: Urinary tract infection, site not specified, SARS-associated coronavirus as the cause of diseases classified elsewhere. - Condition is Stable. - Discharge Instructions: Urinary Tract Infection, Adult, COVID-19. - Prescriptions for Prednisone 20 mg Oral Tablet - take 1 tablet by ORAL route 2 times per day for 10 days; 20 tablet. Levaquin 750 mg Oral Tablet - take 1 tablet by ORAL route Every 48 hours; 5 tablet. - Medication Reconciliation Form, Thank You Letter, Antibiotic Education, Prescription Opioid Use form. - Follow up: Private Physician; When: 5 - 6 days; Reason: Recheck today's complaints, Continuance of care, Re-evaluation by your physician. - Problem is new. - Symptoms have improved. Signatures: Dispatcher [employer] EDNC Alpesh Duenas MD MD rn Smirch, Shelby, RN RN Ford Roberson PA PA jr8 Acalexandr, MATT Ferrell RN ca1 Corrections: (The following items were deleted from the chart) 15:39 12:16 Mclaughlin ordered. jr8 ca1 17:55 16:02 10/05/2020 16:02 Discharged to Home. Impression: Urinary tract infection, site ca1 not specified; SARS-associated coronavirus as the cause of diseases classified elsewhere. Condition is Stable. Forms are Medication Reconciliation Form, Thank You Letter, Antibiotic Education, Prescription Opioid Use. Follow up: Private Physician; When: 5 - 6 days; Reason: Recheck today's complaints, Continuance of care, Re-evaluation by your physician. Problem is new. Symptoms have improved. jr8
[2020-10-05] MEDS ORDERED: CEFTRIAXONE/SWI 1gm 1 GM/10 ML SYR ONE (16:16)
[2020-10-05] MEDS ORDERED: NA CHLORIDE 0.9% 500 ML ONE (16:21)
--- NOTE | 2020-10-05 17:04 | P.CNS ---
Date of Consult: 10/05/20 Reason for Consult: ER evaluation for admission Requesting Physician: Alpesh Duenas Primary Care Provider: Dr. Hopkins Chief Complaint: Fatigue History of Present Illness: 89 yo CF presented to emergency room with fatigue. Patient resting diagnosis with COVID. Patient has oxygen at home. Patient denies any fever, chills. Patient brought in by family to further evaluate. In the ER patient was evaluated. Her med saturations stable with oxygen. Patient does not appear in any distress. CBC unremarkable. Procalcitonin negative. Inflammatory markers stable. Urinalysis was positive for UTI. Chest x-ray unremarkable. I was asked by the ER physician to evaluate for possible admission. Allergies No Known Allergies Allergy (Verified 03/21/13 15:11) Home medications list reviewed: Yes Home Medications: Olmesartan/Hydrochlorothiazide [Benicar Hct 40-12.5 mg Tablet] 1 each PO DAILY WITH BREAKFAST 03/21/13 Mag Hydroxide 8% [Milk Of Magnesia*] 30 ml PO DAILYPRN PRN #0 ucup 03/26/13 Ondansetron [Zofran (Odt)*] 4 mg PO Q6HP PRN #0 tab 03/26/13 Zolpidem Tartrate [Ambien*] 5 mg PO BEDTIME PRN PRN #0 tablet 03/26/13 Acetaminophen [Tylenol Extra Strength*] 500 mg PO Q4HP PRN #0 tab 04/04/13 Aspirin Chewable [Aspirin Chewable*] 81 mg PO DAILY #0 tab.chew 04/04/13 Baclofen [Lioresal*] 10 mg PO BID #20 tab 04/04/13 Iron/FA/Vit B-Com W/C [Hemocyte Plus*] 1 tab PO DAILY #0 tab 04/04/13 Pantoprazole [Protonix Tab*] 40 mg PO DAILY #0 tab 04/04/13 traMADol HCL [Ultram*] 50 mg PO Q4HP PRN #0 tab 04/04/13 traMADol HCL [Ultram*] 100 mg PO Q4HP PRN #0 tab 04/04/13 Lansoprazole 1 tab PO DAILY 12/18/15 Losartan-50/Hctz-12.5 [Hyzaar 50-12.5*] 1 tab PO DAILY 12/18/15 Pramipexole [Mirapex*] 1 tab PO DAILY 12/18/15 Ciprofloxacin HCl [Cipro 250 MG Tablet*] 250 mg PO BID #20 tab 12/19/15 - Past Medical/Surgical History Diabetic: No -: HTN -: Osteoarthritis -: LYMPHEDEMA -: Right total knee replacement -: CHOLECYSTECTOMY -: HYSTERECTOMY Psychosocial/ Personal History: Patient lives at home. Daughter takes care of her. - Family History Mother Family History: Reviewed- Non-Contributory - Social History Smoking Status: Never smoker Alcohol use: No CD- Drugs: No Caffeine use: Yes Place of Residence: Home Review of Systems General: Weakness, Malaise Eyes: Unremarkable ENT: Unremarkable Respiratory: Unremarkable Cardiovascular: Unremarkable Gastrointestinal: Unremarkable Genitourinary: Unremarkable Musculoskeletal: Unremarkable Integumentary: Unremarkable Neurological: Unremarkable Lymphatics: Unremarkable Physical Examination General: Alert, In no apparent distress, Oriented x3, Cooperative HEENT: Atraumatic Neck: Supple Respiratory: Clear to auscultation bilaterally, Normal air movement Cardiovascular: Normal pulses, Regular rate/rhythm Gastrointestinal: Normal bowel sounds, No tenderness, No masses, No rebound, No guarding Integumentary: No tenderness/swelling, No erythema, No warmth, No cyanosis Neurological: Normal speech, Normal strength at 5/5 x4 extr, Normal tone, Normal affect Laboratory Data (last 24 hrs) 10/05/20 14:53: PT 14.4 H, INR 1.23, APTT 32.8 10/05/20 13:43: WBC 4.6, Hgb 14.5, Hct 44.6, Plt Count 149 L 10/05/20 13:35: Sodium 140, Potassium 4.1, BUN 39 H, Creatinine 1.75 H, Glucose 72 L, Total Bilirubin 0.3, AST 45 H, ALT 44, Alkaline Phosphatase 206 H Conclusions/Impression: Impression: Fatigue, mild dehydration with UTI COVID pneumonia Hypertension Plan: Patient evaluate emergency room. Patient appears stable. Patient reports that she has oxygen at home. She has a daughter the can take care of her. Will recommend that the patient be discharged from the emergency room. Case discussed with her son. Son understands patient has mild UTI. ER physician to give IV antibiotic therapy and sent home with oral antibiotics. Patient to be given IV fluids prior to discharge. COVID pneumonia appear stable. She will continue with oxygen. Wean off oxygen. Patient may follow up with pulmonology and PCP within 1 week to follow up this hospitalization. Encourage oral intake. Son agrees with plan of care. If worse patient can return for further evaluation and treatment. Time Spent Managing Pts care (In Minutes): 55
[2020-10-05 18:07] VITALS: TEMP 97.2
[2020-10-05 18:14] VITALS: BP 132/85; O2SAT 96
--- NOTE | 2020-10-05 22:30 | EKG ---
Test Date: 2020-10-05 Test Time: 12:47:41 [employer] Clerk: FERNANDO MEASUREMENT RESULTS: Intervals: Rate: 73 CT: QRSD: 80 QT: 388 QTc: 427 [place]: P: 102 CT: QRS: 9 T: 38 INTERPRETIVE STATEMENTS: Atrial flutter with variable AV block Abnormal ECG Compared to ECG 12/19/2015 06:44:50 Sinus rhythm no longer present Myocardial infarct finding no longer present Electronically Signed On 10-05-20 22:29:26 COMMUNICATIONS DEPARTMENT CHAIRPERSON by Enrique Turner
== END 2020-10-05 17:55 | disposition home or self-care (01) ==
LOC: ER 11:54
DX: U07.1 COVID-19 (principal); R06.00 Dyspnea, unspecified; N39.0 Urinary tract infection, site not specified; I10 Essential (primary) hypertension; I89.0 Lymphedema, not elsewhere classified; M19.90 Unspecified osteoarthritis, unspecified site; E78.00 Pure hypercholesterolemia, unspecified
CPT/HCPCS: 93005; 87040 ×2; 87088; 85025; 87086; 80048; 36415; 85610; 80076; 83605; 85730; 87077; 87186; 84484; 82728; 84145; 86140; 71045; 51702; 96375; 96374; 99285; J1100; J0696; J7040; 81003; 81015